=== PATIENT | female | born 2000 | race African-American/Black ===

== ENCOUNTER 2019-07-08 15:35 | Emergency (ER) | payer MEDICAID ==
[~2019-07-08] VITALS: Ht 165.1 cm; Wt 71.0 kg
[2019-07-08] MEDS ORDERED: TETRACAINE 0.5% OPHTH DROPS 4ML BOTHEYE ONE (16:00)
[2019-07-08] MEDS ORDERED: FLUORESCEIN SODIUM 1MG/STRIP BOTHEYE ONE (16:00)
[2019-07-08] MEDS ORDERED: TRAMADOL 50MG TABLET PO ONE (16:45)
[2019-07-08] MEDS ORDERED: GENTAMICIN 0.3% OPTH OINT 3.5GM EACHEYE STA (17:10)
[2019-07-08] MEDS ORDERED: HYDROCODONE/ACETAMINOPHEN 5/325MG TABLET PO ONE (18:30)
[2019-07-08] MEDS ORDERED: ONDANSETRON 4MG ODT PO ONE (18:30)
[2019-07-08 19:11] VITALS: BP 110/78
== END 2019-07-08 19:15 | disposition home or self-care (01) ==
LOC: ER 15:35
DX: S02.2XXA Fracture of nasal bones, initial encounter for closed fracture (principal); S05.02XA Injury of conjunctiva and corneal abrasion without foreign body, left eye, initial encounter; S05.01XA Injury of conjunctiva and corneal abrasion without foreign body, right eye, initial encounter; J45.909 Unspecified asthma, uncomplicated; V49.88XA Car occupant (driver) (passenger) injured in other specified transport accidents, initial encounter; Y93.89 Activity, other specified; Y92.89 Other specified places as the place of occurrence of the external cause; Y99.8 Other external cause status
CPT/HCPCS: 70450; 70486; 72125; 99285; Q0162